=== PATIENT | female | born 1970 | race Two or more races ===

== ENCOUNTER 2022-01-07 11:03 | Emergency (ER) | payer MEDICAID ==
[~2022-01-07] VITALS: Ht 152.4 cm; Wt 65.8 kg
[2022-01-07 11:12] VITALS: BP 108/81
--- NOTE | 2022-01-07 12:24 | NUR ---
DR CHAUDHARI W/ PATIENT FOR EVAL
[2022-01-07] MEDS ORDERED: CLIN300C12 PO (12:33)
--- NOTE | 2022-01-07 12:38 | NUR ---
Patient discharged to home in stable condition. Written and verbal after care instructions given. Patient verbalizes understanding of instruction.
== END 2022-01-07 12:38 | disposition home or self-care (01) ==
LOC: ER 11:41
DX: H00.013 Hordeolum externum right eye, unspecified eyelid (principal); H57.11 Ocular pain, right eye; Z79.899 Other long term (current) drug therapy